=== PATIENT | female | born 1940 | race Caucasian/White ===

== ENCOUNTER → 2016-09-13 17:09 | Outpatient (CLI) | payer MEDICARE, BC | END | disposition home or self-care (01) | LOC: D.MAMMO 08-21 09:30 | DX: Z12.31 Encounter for screening mammogram for malignant neoplasm of breast (principal) ==

== ENCOUNTER → 2016-11-01 07:54 | Outpatient (CLI) | payer MEDICARE, BC | END | disposition home or self-care (01) | LOC: D.US 10-26 08:30 | DX: R10.9 Unspecified abdominal pain (principal); R11.2 Nausea with vomiting, unspecified ==

== ENCOUNTER → 2016-11-21 09:50 | Outpatient (CLI) | payer MEDICARE, BC ==
--- NOTE | 2016-11-21 13:39 | NUR ---
Nutrition education for continued weight loss: S: Pt reports she eats three meals a day. Pt is very active all day and does not sleep well at night. Pt is always cold. Pt is extremely thin. O: 77 year old female Ht: 5' Wt: 86.6# IBW:100#+/-10% BMI: 16.9 Dx: weight loss, GERD, diverticulosis A: Diet recall reveals pt is not eating as many calories as she thinks she is. RDN calculated calories from yesterdays food intake to be ~960 kcal. Pt thinks she is eating ~2500 kcal per day. Pt reports she has been keeping a log of all the food she eats every day. RDN reviewed a 1500 kcal 5 day plan with pt with emphasis on portions and pt reveals she not able to eat that much food! RDN advised pt to eat at least 6 meals every day about every 2-3 hours a part. Reviewed ways to increase kcal intake by using very high calorie foods. Answered questions. RDN feels pt is making up some of the food she is eating?? Question if she may have an eating disorder?? P: Provided pt with printed diet information and RDN name and phone number. Pt with good understanding of information provided. RDN will be available if needed. Thank you for the consult.
== END | disposition home or self-care (01) ==
LOC: D.FANS 09:50
DX: Z68.1 Body mass index [BMI] 19.9 or less, adult (principal)

== ENCOUNTER → 2017-01-26 11:09 | Outpatient (CLI) | payer MEDICARE, BC ==
[2017-01-31 17:11] LABS: METAN - URINE 33 ug/L (Undefined); METAN - URINE 24HR 83 ug/24 hr (45-290)
== END | disposition home or self-care (01) ==
LOC: D.LABREF 11:09
PROVIDERS: Internal Medicine Gastroenterology
DX: R10.9 Unspecified abdominal pain (principal); R63.4 Abnormal weight loss

== ENCOUNTER → 2017-02-05 07:20 | Outpatient (CLI) | payer MEDICARE, BC | END | disposition home or self-care (01) | LOC: D.NM 07:20 | DX: R10.9 Unspecified abdominal pain (principal); R63.4 Abnormal weight loss ==

== ENCOUNTER → 2017-02-14 09:38 | Outpatient (CLI) | payer MEDICARE, BC | END | disposition home or self-care (01) | LOC: D.CT 01-29 09:30 → D.LAB 01-29 14:15 → D.CT 01-29 14:15 | DX: R10.9 Unspecified abdominal pain (principal); R63.4 Abnormal weight loss ==

== ENCOUNTER → 2017-02-28 17:18 | Outpatient (CLI) | payer MEDICARE, BC | END | disposition home or self-care (01) | LOC: D.LABREF 17:18 | DX: J44.9 Chronic obstructive pulmonary disease, unspecified (principal); J18.9 Pneumonia, unspecified organism ==

== ENCOUNTER → 2017-03-07 07:57 | Outpatient (CLI) | payer MEDICARE, BC ==
[~2017-03-07] VITALS: Ht 152.4 cm; Wt 40.9 kg
--- NOTE | ~2017-03-07 | PRO ---
PATIENT:CATHY CASTILLO MEDICAL RECORD: [id number] : 44 LOCATION:[facility] ADMISSION DATE: 03/07/17 PROCEDURE PERFORMED BY: JONNY TINAJERO MD DATE OF PROCEDURE: 03/07/2017 PROCEDURE: Fiberoptic bronchoscopy. INDICATION: Ms. Castillo has recently had a CT scan, which showed some nodular infiltrate in bilateral upper lobes. Fiberoptic bronchoscopy was carried out to obtain specimen for culture and sensitivity and inspect the airways. MONITORING: EKG, pulse, blood pressure and SpO2 were monitored throughout the procedure. MEDICATIONS: Morphine 4 mg IM, atropine 0.6 mg IM, Versed 5 mg IV in divided doses and fentanyl 100 mcg IV. PROCEDURE IN DETAIL: Fiberoptic bronchoscope was easily passed through the mouth. There was oropharyngeal thrush. There are white spots bilaterally. The epiglottis was normal. The vocal cords were normal, moving equally on phonation. The main trachea was normal. The molly was sharp. The right main bronchus, the subsegment to the right upper lobe, right middle lobe and right lower lobe within normal range. No endobronchial lesion was seen. The left main bronchus was normal, the subsegment to the left upper lobe and left lower lobe within normal range. No endobronchial lesion was seen. Specimen washing was obtained bilaterally, especially in the upper lobe and sent for routine culture and sensitivity, AFB, fungus and cytology. The patient has oral thrush and a prescription for Diflucan 100 mg daily was given. TRANSINT:[id number] Voice Confirmation ID: [id number] DOCUMENT ID: [id number] JONNY TINAJERO MD CC: MALCOLM BECKETT M.D. [id number] DICTATION DATE: 03/07/17 1046 CONCRETE CRUSHER LOADER OPERATOR: 03/07/17 1843 [facility] [address] [place] [address]
[~2017-03-07 07:57] MED LIST: ATIVAN1 MG PO; CATAPRES0.1 MG PO; COZAAR25 MG PO; DONNATAL E16.2 MG/5 PO; QVAR8.7 G1 INH; XOPENEX HFA15 GM INH
[2017-03-07 08:53] VITALS: BP 108/67; Ht 152.4 cm; Wt 40.9 kg
[2017-03-07 08:57] LABS: BASOPHILS 0.5 % (0-2); EOSINOPHILS 1.1 % (0-7); HEMATOCRIT 39.6 % (36.0-48.0); HEMOGLOBIN 13.3 g/dL (12-16); IMMATURE GRANULOCYTES 0.2 % (0-5); LYMPHOCYTES 16.2 % (15-50); MCHC 33.6 g/dL (31.0-37.0); MCV 86.3 fL (80.0-100.0); MEAN PLATELET VOLUME 10.9 fL (7.4-10.4); MONOCYTES 9.7 % (2-11); NEUTROPHILS 72.3 % (40-80); RBC 4.59 10x6/uL (4.00-5.40); RDW 13.7 % (11.5-14.5); WBC 5.6 10x3/uL (4.8-10.8)
[2017-03-07 09:02] LABS: APTT 29.9 SECONDS (22.8-39.4); INR 0.95 (0.85-1.17); PROTIME 12.5 SECONDS (11.6-15.0)
[2017-03-07 09:03] LABS: PLATELET COUNT 255 10x3/uL (130-400)
--- NOTE | 2017-03-07 13:56 | NUR ---
1315 DISCHARGE INSTRUCTIONS COMPLETE. PRESCRIPTION FOR DIFLUCAN GIVEN. SHE HAS NO QUESTIONS OR CONCERNS AT THIS TIME. ESCORTED OUT BY VOLUNTEER.
--- NOTE | 2017-03-07 13:56 | NUR ---
1055 VITALS PER MD ORDER-ON FREQUENT VITALS SHEET.
[2017-03-08 12:15] LABS: FUNGUS STAIN Final report (())
[2017-03-08 19:11] LABS: ACID FAST SMEAR Negative (()); AFB SPECIMEN PROCESSING Concentration (())
== END | disposition home or self-care (01) ==
LOC: D.OPS 07:57
PROVIDERS: Internal Medicine Pulmonary Disease
DX: R91.8 Other nonspecific abnormal finding of lung field (principal); J44.9 Chronic obstructive pulmonary disease, unspecified; R05 Cough; D71 Functional disorders of polymorphonuclear neutrophils; K21.9 Gastro-esophageal reflux disease without esophagitis; R63.4 Abnormal weight loss; Z87.891 Personal history of nicotine dependence; Z01.812 Encounter for preprocedural laboratory examination

== ENCOUNTER → 2017-09-05 09:26 | Outpatient (CLI) | payer MEDICARE, BC ==
[2017-03-07 08:53] VITALS: BMI 17.6
== END | disposition home or self-care (01) ==
LOC: D.CT 09:26
DX: R93.8 Abnormal findings on diagnostic imaging of other specified body structures (principal)

== ENCOUNTER → 2017-09-23 16:48 | Outpatient (CLI) | payer MEDICARE, BC ==
[2017-03-07 08:53] VITALS: BMI 17.6
== END | disposition home or self-care (01) ==
LOC: D.MAMMO 11:15
DX: Z12.31 Encounter for screening mammogram for malignant neoplasm of breast (principal)

== ENCOUNTER → 2017-10-22 18:21 | Outpatient (CLI) | payer MEDICARE, BC ==
[2017-03-07 08:53] VITALS: BMI 17.6
== END | disposition home or self-care (01) ==
LOC: D.MAMMO 10:00
DX: R92.8 Other abnormal and inconclusive findings on diagnostic imaging of breast (principal)

== ENCOUNTER → 2017-12-06 07:43 | Outpatient (CLI) | payer MEDICARE, BC ==
[2017-03-07 08:53] VITALS: BMI 17.6
[2017-12-10 12:11] LABS: ANA REFLEX - DIRECT Negative (Negative)
== END | disposition home or self-care (01) ==
LOC: D.CT 07:43
PROVIDERS: Internal Medicine Pulmonary Disease
DX: R94.2 Abnormal results of pulmonary function studies (principal); J45.909 Unspecified asthma, uncomplicated

== ENCOUNTER → 2018-01-16 17:14 | Outpatient (CLI) | payer MEDICARE, BC ==
[2017-03-07 08:53] VITALS: BMI 17.6
== END | disposition home or self-care (01) ==
LOC: D.LABREF 17:14
DX: R91.8 Other nonspecific abnormal finding of lung field (principal)

== ENCOUNTER → 2018-05-26 12:36 | Outpatient (CLI) | payer MEDICARE, BC ==
[2017-03-07 08:53] VITALS: BMI 17.6
== END | disposition home or self-care (01) ==
LOC: D.CT 11:30 → D.RT 12:36
DX: J44.9 Chronic obstructive pulmonary disease, unspecified (principal); R94.2 Abnormal results of pulmonary function studies

== ENCOUNTER → 2018-07-02 13:07 | Outpatient (CLI) | payer MEDICARE, BC ==
[2017-03-07 08:53] VITALS: BMI 17.6
== END | disposition home or self-care (01) ==
LOC: D.RAD 13:07
DX: J45.909 Unspecified asthma, uncomplicated (principal)

== ENCOUNTER → 2018-07-22 09:54 | Outpatient (CLI) | payer MEDICARE, BC ==
[2017-03-07 08:53] VITALS: BMI 17.6
== END | disposition home or self-care (01) ==
LOC: D.CT 09:54
DX: M54.2 Cervicalgia (principal)

== ENCOUNTER 2018-10-01 19:00 | Outpatient (CLI) | payer MEDICARE, BC ==
[2017-03-07 08:53] VITALS: BMI 17.6
== END 2018-10-01 23:59 | disposition home or self-care (01) ==
LOC: D.MAMMO 19:00
PROVIDERS: ATTEND Family Medicine
DX: Z12.31 Encounter for screening mammogram for malignant neoplasm of breast (principal)

== ENCOUNTER 2018-11-10 08:00 | Outpatient (CLI) | payer MEDICARE, BC ==
[2017-03-07 08:53] VITALS: BMI 17.6
== END 2018-11-10 09:00 | disposition home or self-care (01) ==
LOC: D.MAMMO 08:00
PROVIDERS: ATTEND Family Medicine
DX: R92.8 Other abnormal and inconclusive findings on diagnostic imaging of breast (principal)

== ENCOUNTER → 2019-01-23 13:47 | Outpatient (CLI) | payer MEDICARE, BC ==
[2017-03-07 08:53] VITALS: BMI 17.6
== END | disposition home or self-care (01) ==
LOC: D.RAD 13:47
PROVIDERS: ATTEND Internal Medicine Pulmonary Disease
DX: J45.909 Unspecified asthma, uncomplicated (principal)

== ENCOUNTER → 2019-11-23 09:26 | Outpatient (CLI) | payer MEDICARE, BC ==
[2017-03-07 08:53] VITALS: BMI 17.6
== END | disposition home or self-care (01) ==
LOC: D.NM 09:26
PROVIDERS: ATTEND Internal Medicine Gastroenterology
DX: R10.9 Unspecified abdominal pain (principal)

== ENCOUNTER 2020-03-09 05:24 | Day surgery (SDC) | payer MEDICARE, BC ==
[~2020-03-09] VITALS: Ht 152.4 cm; Wt 35.8 kg
[~2020-03-09 05:24] MED LIST changes: +ADVIL100 M1 PO; +ARNUITY ELLIP200 MCG INH; +AZO STANDARD95 MG PO; +DULCOLAX5 MG PO; +GAS-X180 MG PO; +METAMUCIL PACKE1 PKT PO; +MYLANTA / MAALO30 ML PO; +NORVASC5 MG PO; +PROBIOTIC1 EAC1 PO
[2020-03-09 05:58] LABS: BASOPHILS 0.9 % (0-2); EOSINOPHILS 3.2 % (0-7); HEMOGLOBIN 11.6 g/dL (12-16); IMMATURE GRANULOCYTES 0.2 % (0-5); LYMPHOCYTES 27.3 % (15-50); MCH 25.7 pg (26.0-34.0); MCHC 31.4 g/dL (31.0-37.0); MCV 81.9 fL (80.0-100.0); MEAN PLATELET VOLUME 10.4 fL (7.4-10.4); NEUTROPHILS 59.4 % (40-80); PLATELET COUNT 248 10x3/uL (130-400); RBC 4.52 10x6/uL (4.00-5.40); RDW 16.1 % (11.5-14.5); WBC 4.4 10x3/uL (4.8-10.8)
[2020-03-09 06:04] LABS: ANION GAP 9.2 mmol/L (8-16); CALCIUM 9.1 mg/dL (8.5-10.1); CARBON DIOXIDE 28.2 mmol/L (21.0-32.0); CREATININE - SERUM 0.8 mg/dL (0.6-1.3); POTASSIUM - SERUM 3.4 mmol/L (3.5-5.1)
[2020-03-09 07:01] VITALS: BP 132/66; Ht 152.4 cm; Wt 35.8 kg
[2020-03-09] MEDS ORDERED: EX-LAX15 MG PO (07:16)
--- NOTE | 2020-03-09 15:46 | NUR ---
1430 IV D/C'D WITH CANNULA INTACT, PRESSURE APPLIED, AND DRSG PLACED. DISCHARGE INSTRUCTION GIVEN TO PT AND . ABD ROMULOG CDI. DISCHARGED HOME WITH PAIN TOLERABLE AND W/O C/O
== END 2020-03-09 14:30 | disposition home or self-care (01) ==
LOC: D.OPS 05:24
PROVIDERS: ATTEND Surgery
DX: K82.8 Other specified diseases of gallbladder (principal); K82.9 Disease of gallbladder, unspecified; Z53.8 Procedure and treatment not carried out for other reasons

== ENCOUNTER → 2020-04-05 07:57 | Outpatient (CLI) | payer MEDICARE, BC ==
[2020-03-09 07:01] VITALS: BMI 15.4
[~2020-04-05 07:57] MED LIST changes: +EX-LAX15 MG PO
== END | disposition home or self-care (01) ==
LOC: D.CT 07:57
PROVIDERS: ATTEND Nurse Practitioner
DX: R10.9 Unspecified abdominal pain (principal)

== ENCOUNTER → 2020-11-28 09:02 | Outpatient (CLI) | payer MEDICARE, BC ==
[2020-03-09 07:01] VITALS: BMI 15.4
--- NOTE | 2020-11-29 14:07 | ST ---
PATIENT:CATHY LONG MEDICAL RECORD: [id number] SEX: F [facility] ORDER #: ADMISSION DATE: 11/28/20 AGE OF PATIENT: 80 REFERRING PHYSICIAN: INTERPRETING PHYSICIAN: ALEX CLEMENTS MD DATE OF SERVICE: 11/28/2020 PROCEDURE: Nuclear stress test. GATED: Normal. Normal wall motion. Normal EF of 74%. SPECT IMAGING: SPECT imaging was performed. 1. Short axis view: Short axis view shows good uptake along the anterior wall, lateral wall and inferior wall. 2. Horizontal axis: Horizontal axis confirms good uptake along the anterior wall and inferior wall. 3. Vertical axis: Vertical axis shows good uptake along the lateral wall and septum. FINAL IMPRESSION: 1. Normal gated, normal EF 74%. 2. Normal SPECT imaging. FINAL IMPRESSION: This scan is felt low risk for any ongoing coronary artery disease or previous myocardial infarction. LV function remains normal. Continued risk factor modification is recommended. TRANSINT:[id number] Voice Confirmation ID: [id number] DOCUMENT ID: [id number] ALEX CLEMENTS MD at 1407 CC: [id number] DICTATION DATE: 11/28/20 1635 EVENT MARKETING ASSISTANT: 11/29/20 0901 DEP CLI 11/28/20 [id number] [place] [address]
== END | disposition home or self-care (01) ==
LOC: D.HCCARDIO 09:02
PROVIDERS: ATTEND Internal Medicine Interventional Cardiology
DX: I20.9 Angina pectoris, unspecified (principal)